=== PATIENT | female | born 1970 | race Caucasian/White ===

== ENCOUNTER → 2016-12-06 | Outpatient (CLI) | payer OTHER ==
[~2016-12-06] MED LIST: BUPR100T8 PO; HYDR25TA4 PO; TPM/50 PO
[2016-12-06 09:31] LABS: HEMATOCRIT 44.7 % (37-47); MEAN CELL VOLUME 89.8 fL (80-100); MEAN CORPUSCULAR HEMOGLOBIN 29.7 pg (25-34); MEAN CORPUSCULAR HGB CONC 33.1 g/dl (32-36); MEAN PLATELET VOLUME 11.9 fL (7.4-10.4); PLATELET COUNT 234 K/uL (130-400); RED BLOOD COUNT 4.98 M/uL (4.2-5.4); WHITE BLOOD COUNT 8.59 K/uL (4.8-10.8)
[2016-12-06 09:37] LABS: URINE APPEARANCE CLEAR (CLEAR); URINE BILIRUBIN NEG (NEG); URINE COLOR YELLOW; URINE EPITHELIAL CELL AUTO 20-30 /lpf (0-5); URINE NITRITE NEG (NEG); URINE SPECIFIC GRAVITY 1.011 (1.000-1.030); UROBILINOGEN NEG (NEG)
[2016-12-06 09:38] LABS: MANUAL MICROSCOPIC REQUIRED? NO; REVIEW REQ? NO
[2016-12-06 09:40] LABS: BLOOD UREA NITROGEN 15 mg/dl (7-18); BUN/CREATININE RATIO 15.5 (10-20); CALCIUM 9.4 mg/dl (8.5-10.1); CARBON DIOXIDE 26 mmol/L (21-32); CHLORIDE 105 mmol/L (98-107); CHOLESTEROL 172 mg/dl (0-200); CREATININE 0.99 mg/dl (0.60-1.20); GLUCOSE 82 mg/dl (70-99); POTASSIUM 3.8 mmol/L (3.5-5.1); SODIUM 135 mmol/L (136-145); TRIGLYCERIDES 74 mg/dl (0-150); VERY LOW DENSITY LIPOPROT CALC 15 mg/dl
[2016-12-06 09:50] LABS: HDL CHOLESTEROL 58 mg/dl; LDL CHOLESTEROL CALCULATED 99 mg/dl
== END | disposition home or self-care (01) ==
LOC: C.LAB1850 07:16
PROVIDERS: ATTEND Nurse Practitioner Family
DX: Z13.220 Encounter for screening for lipoid disorders (principal); Z13.1 Encounter for screening for diabetes mellitus; R53.83 Other fatigue; I10 Essential (primary) hypertension

== ENCOUNTER → 2017-07-20 | Day surgery (SDC) | payer OTHER ==
[2017-07-10 08:46] VITALS: Ht 167.6 cm; Wt 71.4 kg
[~2017-07-20] VITALS: Ht 167.6 cm; Wt 71.4 kg
[~2017-07-20] MED LIST changes: +AMLO-110 PO; +ATROPINE SULFATE 0.1 MG/ML 5ML SYR IV PRN; +BACITRACIN OINT 15 GM TUBE ONE; +BUPIVACAINE 0.5 % 5 MG/1 ML PF 10ML VIAL ONE; +EpHEDrine SULFATE INJ 50 MG/ML AMP IV PRN; +FENTANYL CITRATE INJ 50 MCG/1 ML 2 ML VIAL IV PRN; +FENTANYL CITRATE INJ 50 MCG/1 ML 2 ML VIAL ONE; -HYDR25TA4 PO; +HYDROCODONE/ACETAMIN 5/325MG TAB PO PRN; +LACTATED RINGER'S 1000ML 1,000 ML IV SCH; +LIDOCAINE HCL 2% 2 ML VIAL (20MG/ML) ONE; +LIDOCAINE/EPINEPHRINE 1% 20 ML VIAL ONE; +MIDAZOLAM HCL 1 MG/ML 2ML VIAL ONE; +MoRPHine SULFATE 2 MG/ML CARP IV PRN; +ONDANSETRON INJ 2 MG/ML 2 ML VIAL IV PRN; +PROPOFOL IV EMULSION 10 MG/ML 20 ML VIAL IV ONE
--- NOTE | 2017-07-20 10:12 | History & Physical Bridge - [place] ---
H&P Re-Evaluation Bridge Note: I have examined the patient, reviewed the History & Physical and in the interval since the performance of the History & Physical I have noted the following changes of clinical significance: No changes noted
--- NOTE | 2017-07-20 10:21 | Discharge Instructions ---
Discharge Instructions Date of Service Jul 20, 2017. Visit Reason for Visit: Scalp Masses X2 Discharge Discharge Diagnosis / Problem: excision scalp mass Discharge Goals Goal(s): Decrease discomfort Activity Recommendations Activity Limitations: resume your previous activity Shower/Bathe: tomorrow Anesthesia . Post Anesthesia Instructions: If you have had General Anesthesia or IV Sedation: * Do not drive today. * Resume driving when surgeon permits. * Do not make important decisions or sign legal documents today. * Call surgeon for: 1. Temperature elevations greater than 101 degrees F. 2. Uncontrollable pain. 3. Excessive bleeding. 4. Persistent nausea and vomiting. 5. Medication intolerance (nausea, vomiting or rash). * For nausea and vomiting use only clear liquids such as: tea, soda, bouillon until nausea subsides, then gradually increase diet as tolerated. * If you have any concerns or questions, call your surgeon's office. If physician is unavailable and it is an emergency, call 911 or go to the nearest emergency room. . Instructions / Follow-Up Instructions / Follow-Up Dr. Nino in approx 1 week as planned or call [phone] if you do not already have an appt or have any questions You may take ibuprofen 600 mg every 6 hours as needed for pain or Tylenol OTC as directed Diet Recommendations Recommended Home Diet: no limitations Pending Studies Studies pending at discharge: yes List of pending studies: pathology Medical Emergencies . Who to Call and When: Medical Emergencies: If at any time you feel your situation is an emergency, please call 911 immediately. . Non-Emergent Contact Non-Emergency issues call your: Surgeon Call Non-Emergent contact if: you have a fever, temperature is above 101.5, your pain is not controlled, wound has increased redness, you have any medication questions . . "Provider Documentation" section prepared by John Givens. .
--- NOTE | 2017-07-20 11:20 | [facility] Post Operative Brief Note ---
Immediate Operative Summary Operative Date Jul 20, 2017. Pre-Operative Diagnosis Scalp masses X2 Post-Operative Diagnosis Same as pre-op Procedure(s) Performed Excision Scalp Masses X2 (1cm and 1cm) Surgeon Hospice Clinical Marketer Surgeon(s) None Estimated Blood Loss 1ML Findings Consistent with Post-Op Diagnosis 1cm pilar cysts excised, superficial to galea Specimens A.Midline scalp mass B.Right side scalp mass Drains None Anesthesia Type MAC Complication(s) none Disposition Accompanied Pt To Recovery: no Disposition: Recovery Room / PACU
[2017-07-20 11:24] VITALS: TEMP 36.9
--- NOTE | 2017-07-20 11:25 | [facility] Operative Report ---
Operative Report Operative Date Jul 20, 2017. Pre-Operative Diagnosis Scalp masses X2 Post-Operative Diagnosis Same as pre-op Procedure(s) Performed Excision Scalp Masses X2 (1cm and 1cm) Surgeon Asphalt Worker Surgeon(s) None Estimated Blood Loss 1ML Findings 1cm pilar cysts excised, superficial to galea Specimens A.Midline scalp mass B.Right side scalp mass Drains None Anesthesia Type MAC Complication(s) none Disposition no Recovery Room / PACU Indications 47-year-old female with soft tissue masses to her scalp, likely pilar cysts. Plan for excision of scalp masses 2. The risks of the procedure were discussed , all questions were answered, and the patient agreed to proceed with surgery as planned. Description of Procedure The patient was properly identified, consented, and taken to the operating room where she was placed in the supine position. Moderate anesthesia care was induced. SCDs and a safety belt were placed. The areas overlying the mass is in the midline scalp and right temporal area and a small amount of hair shaved overlying the mass. Surgical lube was used to keep the hair out of the surgical field. The patient's scalp was prepped and draped in the standard sterile fashion. Surgical timeout was performed and all parties were in agreement that this was the correct patient and procedure to be performed and we continued as planned. Local anesthetic was injected along the skin incision. An elliptical incision was made overlying the mass in the midline scalp and deepened down through the subcutaneous tissue with electrocautery. The mass was circumferentially dissected, excised, and passed off the table as specimen, and appear to be a 1 cm pilar cyst that was superficial to the galea. The wound was irrigated and hemostasis was confirmed. The skin was closed with interrupted 4-0 Prolene simple suture. Bacitracin was placed over the wound. Attention then turned to the right sided scalp mass. An elliptical incision was made overlying the mass and encompassing the central punctum was clearly visible. The mass was circumferentially dissected, excised, and passed off the table specimen, and appeared to be a 1 cm pilar cyst that was superficial to the galea was more inflamed than the other excision. The wound was irrigated and hemostasis was confirmed. The skin was closed with interrupted 4-0 Prolene simple sutures. Bacitracin was placed over the wound. Anesthesia was ceased in the operating room and taken to the PACU where she recovered without apparent incident. All sponge, instrument and needle counts were correct at the conclusion of the procedure. The patient tolerated the procedure well. I attest to the content of the Intraoperative Record and any orders documented therein. Any exceptions are noted below.
[2017-07-20 11:45] VITALS: BP 151/85; PULSE 65; O2SAT 99
--- NOTE | 2017-07-20 11:49 | Anesthesiology Progress Note ---
Anesthesia Post Op Note Date & Time Jul 20, 2017 at 11:49 Vital Signs Pain Intensity: 5 Vital Signs Past 12 Hours Date Time Temp Pulse Resp B/P (MAP) Pulse Ox O2 Delivery O2 Flow Rate FiO2 07/20/17 11:45 65 16 151/85 (107) 99 Room Air 07/20/17 11:24 36.9 68 16 145/84 (104) 99 Room Air 07/20/17 09:35 36.5 65 16 128/87 (101) 97 Room Air Notes Mental Status: alert / awake / arousable, participated in evaluation Pt Amnestic to Procedure: Yes Nausea / Vomiting: adequately controlled Pain: adequately controlled Airway Patency, RR, SpO2: stable & adequate BP & HR: stable & adequate Hydration State: stable & adequate Anesthetic Complications: no major complications apparent
== END | disposition home or self-care (01) ==
LOC: X.SURG 09:16
PROVIDERS: ATTEND Surgery
DX: L72.11 Pilar cyst (principal); I10 Essential (primary) hypertension; F41.8 Other specified anxiety disorders; K21.9 Gastro-esophageal reflux disease without esophagitis; Z98.51 Tubal ligation status; Z79.899 Other long term (current) drug therapy; Z82.49 Family history of ischemic heart disease and other diseases of the circulatory system; Z83.49 Family history of other endocrine, nutritional and metabolic diseases

== ENCOUNTER 2017-09-13 23:16 | Emergency (ER) | payer OTHER ==
[~2017-09-13] VITALS: Ht 167.6 cm; Wt 74.0 kg
[~2017-09-13 23:16] MED LIST changes: -ATROPINE SULFATE 0.1 MG/ML 5ML SYR IV PRN; -BACITRACIN OINT 15 GM TUBE ONE; -BUPIVACAINE 0.5 % 5 MG/1 ML PF 10ML VIAL ONE; -EpHEDrine SULFATE INJ 50 MG/ML AMP IV PRN; -FENTANYL CITRATE INJ 50 MCG/1 ML 2 ML VIAL IV PRN; -FENTANYL CITRATE INJ 50 MCG/1 ML 2 ML VIAL ONE; -HYDROCODONE/ACETAMIN 5/325MG TAB PO PRN; -LACTATED RINGER'S 1000ML 1,000 ML IV SCH; -LIDOCAINE HCL 2% 2 ML VIAL (20MG/ML) ONE; -LIDOCAINE/EPINEPHRINE 1% 20 ML VIAL ONE; -MIDAZOLAM HCL 1 MG/ML 2ML VIAL ONE; -MoRPHine SULFATE 2 MG/ML CARP IV PRN; -ONDANSETRON INJ 2 MG/ML 2 ML VIAL IV PRN; -PROPOFOL IV EMULSION 10 MG/ML 20 ML VIAL IV ONE
[2017-09-13 23:24] VITALS: TEMP 36.5; Ht 167.6 cm; Wt 74.0 kg
--- NOTE | 2017-09-13 23:56 | EMERGENCY ROOM VISIT NOTE ---
History First contact with patient: 23:27 Chief Complaint: HAND PAIN/INJURY Stated Complaint: RIGHT HAND MIDDLE FINGER INJURY History of Present Illness The patient is a 47 year old female who presents to the Emergency Room via private vehicle with complaints of "right hand, middle finger injury". The patient states that she is right-hand dominant, and earlier today around 7:30 AM she was on doing a bungee cord when she felt a pop in the right hand on the flexor aspect of the right third digit and then had pain radiating to the dorsal base. She rates the pain as a 7/10. She denies any numbness or tingling. She notes that she tried to ice the region and took ibuprofen with minimal relief. Review of Systems A complete 6-point Review of Systems was discussed with the patient, with pertinent positives and negatives listed in the History of Present Illness. All remaining Review of Systems questions can be considered negative unless otherwise specified. Past Medical/Surgical History Medical Problems: (1) Hx of migraines (2) Hypertension (3) Kidney stone Family History No pertinent family history Social History Smoking Status: Never Smoker Alcohol Use: occasionally Drug Use: none Marital Status: , in relationship Housing Status: lives with family Occupation Status: employed Current/Historical Medications Scheduled Amlodipine (Norvasc), 5 MG PO QAM Bupropion (Wellbutrin Sr), 100 MG PO QAM Topiramate (Topamax), 100 MG PO QPM Topiramate (Topamax), 50 MG PO QAM Physical Exam Vital Signs Date Time Temp Pulse Resp B/P (MAP) Pulse Ox O2 Delivery O2 Flow Rate FiO2 09/14/17 00:09 60 20 145/80 98 Room Air 09/13/17 23:24 36.5 63 20 149/86 98 Room Air Physical Exam VITAL SIGNS - Vital signs and nursing notes were reviewed. Stable. Afebrile. GENERAL -47-year-old female appearing her stated age who is in no acute distress. Communicates well with provider and answers questions appropriately. SKIN -no ecchymosis. There is edema and erythema overlying the dorsal aspect of the right MCP joint. No deformity noted. EXTREMITIES -the patient's right hand is unremarkable to inspection other than edema and erythema overlying the right third dorsal aspect of the MCP joint. There is tenderness to palpation overlying the flexor aspect of the patient's right PIP and DIP joint extending to the volar MCP joint region. Full strength with flexion and extension was elicited against resistance of the right third digit. No strength deficit. No palpable tear/rolled tendon or ligament. No clicking. No crepitus. She is neurovascularly intact in this region with excellent distal capillary refill. Medical Decision & Procedures ER Provider Diagnostic Interpretation: R HAND MIN 3 VIEWS ROUTINE CLINICAL HISTORY: Right hand pain COMPARISON: None. DISCUSSION: No acute fractures or dislocations are visualized. There are no erosive or destructive changes. IMPRESSION: No acute fractures. No evidence of erosive disease. Electronically signed by: Da Gilmore M.D. 09/14/2017 6:50 AM Dictated Date/Time: 09/14/2017 6:49 AM Medical Decision Patient was seen and evaluated as above in room be 11. Review was performed of nursing notes and vital signs. After obtaining a thorough history and physical examination the above work up was performed. X-ray obtained secondary to her presentation with right third digit pain extending into the MCP joint. This was found to be negative. I suspect she likely is experiencing a tendon or ligamentous injury. She will be placed in a finger splint with slight flexion secondary to the pain being on the flexor aspect. She is to follow with orthopedics or return with worsening. Work excuse provided. The patient was educated upon management, had questions answered prior to discharge, and was discharged home in good condition. In the evaluation and treatment of this patient, the following differential diagnoses were considered: Finger Fracture, Finger Dislocation, Finger Sprain, Finger Contusion, Jersey Finger, or Mallet Finger. Impression Primary Impression: Finger pain, right Departure Information Dispostion Home / Self-Care Condition GOOD Referrals Terri Johnson (PCP) Mele Lamar M.D. Patient Instructions [facility] Additional Instructions You have been treated in the Emergency Department for Finger Pain. For pain control, you can use the following [id number] medicines: - Regular strength (325mg/tab) Tylenol (acetaminophen) 2 tabs every 4-6 hours as needed. Do not exceed 12 tablets in a 24 hour period. Avoid taking more than 3 grams (3000 mg) of Tylenol per day. This includes any other sources of acetaminophen you may take on a regular basis. - Regular strength (200 mg/tab) Advil (ibuprofen) 1-2 tabs every 4-6 hours as needed. Do not exceed a dose of 3200 mg per day. If this is a recent injury (<24 hrs), ice can be applied to the area of pain for the first 3 days to help decrease pain and inflammation. You have been provided the number for an Orthopaedic Surgeon. You should call this number as soon as possible to establish a follow-up visit from today's Emergency Department visit. Keep the brace/splint in place until evaluated by Orthopedics. Return to the Emergency Department if your current symptoms worsen despite treatment course outlined above, or if you develop any of the following symptoms : intractable pain despite aforementioned treatment course or new onset of numbness or tingling of the fingers.
[2017-09-14 00:09] VITALS: BP 145/80; PULSE 60; O2SAT 98
--- NOTE | 2017-09-14 06:51 | DIAGNOSTIC IMAGING REPORT ---
R HAND MIN 3 VIEWS ROUTINE CLINICAL HISTORY: Right hand pain COMPARISON: None. DISCUSSION: No acute fractures or dislocations are visualized. There are no erosive or destructive changes. IMPRESSION: No acute fractures. No evidence of erosive disease. Electronically signed by: Da Gilmore M.D. 09/14/2017 6:50 AM Dictated Date/Time: 09/14/2017 6:49 AM
== END 2017-09-14 00:11 | disposition home or self-care (01) ==
LOC: C.EDB 23:17
DX: M79.644 Pain in right finger(s) (principal); I10 Essential (primary) hypertension; Z79.899 Other long term (current) drug therapy; X58.XXXA Exposure to other specified factors, initial encounter

== ENCOUNTER → 2017-12-12 | Outpatient (CLI) | payer OTHER ==
[~2017-12-12] MED LIST changes: -AMLO-110 PO; +AMLO5TAB3 PO
== END | disposition home or self-care (01) ==
LOC: C.LAB1850 12:24
PROVIDERS: ATTEND Family Medicine
DX: Z13.1 Encounter for screening for diabetes mellitus (principal); Z13.220 Encounter for screening for lipoid disorders